=== PATIENT | female | born 1935 | race Caucasian/White ===

== ENCOUNTER 2017-11-15 11:08 | Inpatient (IN) | payer OTHER, BC ==
[~2017-11-15] VITALS: Ht 162.6 cm; Wt 56.9 kg
[~2017-11-15 11:08] MED LIST: AMIODARONE HCL200 MG PO; AMLODIPINE BESY10 MG PO; ASPIR 8181 M1 PO; ATORVASTATIN CA40 MG PO; BYSTOLIC5 MG PO; CALCIUM ACETAT667 MG PO; CARDURA2 M1 PO; DIALYVITE TABL1 EACH PO; ELIQUIS2.5 MG PO; IMDUR60 MG PO; INTUNIV2 MG PO; ISOSORBIDE MONO60 MG PO; LEVOTHYROXINE150 MCG PO; LIPITOR40 MG PO; LO-DOSE ASPIRIN81 M1 PO; LOPRESSOR25 MG PO; LOPRESSOR50 MG PO; LOSARTAN POTASS25 MG PO; LOSARTAN POTASS50 MG PO; METHYLDOPA500 MG PO; METOPROLOL TART25 MG PO; METRONIDAZOLE500 MG PO; NIFEDIPINE ER30 MG PO; NIFEDIPINE ER60 MG PO; NORVASC10 MG PO; PANTOPRAZOLE SO40 MG PO; SERTRALINE HCL50 MG PO; SYNTHROID125 MCG PO; SYNTHROID150 MCG PO; VENTOLIN HFA18 GM IH; VITAMIN D2000 UNIT PO; ZOLOFT50 MG PO
[2017-11-15 11:54] LABS: BASOPHIL (%) 0.9 % (0-1); EOSINOPHIL COUNT 0.1 K/uL (0-0.3); HEMATOCRIT 31.8 % (36.0-46.0); HEMOGLOBIN 10.5 G/DL (11.9-15.5); IMMATURE GRANULOCYTE (%) 0.7 % (0.0-0.7); LYMPHOCYTE (%) 13.8 % (15-42); LYMPHOCYTE COUNT 0.6 K/uL (1.0-2.8); MCV 102.9 FL (83-99); MONOCYTE (%) 11.1 % (3-12); MONOCYTE COUNT 0.5 K/uL (0-0.8); NEUTROPHIL (%) 71.5 % (45-76); NEUTROPHIL COUNT 3.2 K/uL (1.8-6.4); PLATELET COUNT 142 K/uL (156-360); RBC DIS.WIDTH-CV 15.3 % (11.8-14.6); RBC DIS.WIDTH-SD 58.6 % (39-53); RED BLOOD COUNT 3.09 M/uL (3.80-5.20); WHITE BLOOD COUNT 4.4 K/uL (4.1-10.2)
[2017-11-15 12:01] LABS: INTER. NORMALIZED RATIO 1.9
[2017-11-15 12:03] LABS: PTT 44.9 SEC (25-37)
[2017-11-15 12:17] LABS: TROP-I INTERPRETATION NEGATIVE
[2017-11-15 12:32] LABS: CHLORIDE 99 MEQ/L (99-109); CREATININE 9.1 MG/DL (0.6-1.3); GFR ESTIMATE (CALCULATED) 4 mL/min/; GLUCOSE 90 mg/dL (70-99); POTASSIUM 3.2 MEQ/L (3.7-5.4); SODIUM 136 MEQ/L (136-147); UREA NITROGEN (BUN) 36 mg/dL (9-23)
[2017-11-15] MEDS ORDERED: TESSALON PERLE100 MG PO (14:14)
[2017-11-15] MEDS ORDERED: RESTORIL30 MG PO (14:15)
[2017-11-15] MEDS ORDERED: AMIODARONE HCL200 MG PO (14:18)
[2017-11-15] MEDS ORDERED: TOPROL XL25 MG PO (14:18)
[2017-11-15] MEDS ORDERED: PROCARDIA XL60 MG PO (14:19)
[2017-11-15 16:11] LABS: TROP-I INTERPRETATION INDETERMINATE; TROPONIN-I 0.31 ng/mL (0.0-0.30)
[2017-11-15 19:50] VITALS: BP 131/59
[2017-11-16] VITALS (7 sets, daily range): BP systolic 103–138; BP diastolic 45–62
[2017-11-16 06:49] LABS: BASOPHIL (%) 0.9 % (0-1); EOSINOPHIL (%) 3.2 % (0-5); EOSINOPHIL COUNT 0.2 K/uL (0-0.3); HEMATOCRIT 29.9 % (36.0-46.0); HEMOGLOBIN 9.6 G/DL (11.9-15.5); IMMATURE GRANULOCYTE (%) 0.6 % (0.0-0.7); LYMPHOCYTE (%) 19.7 % (15-42); LYMPHOCYTE COUNT 0.9 K/uL (1.0-2.8); MCH 34.2 PG (29.0-34.0); MCHC 32.1 G/DL (30.0-36.0); MCV 106.4 FL (83-99); MONOCYTE (%) 10.4 % (3-12); MONOCYTE COUNT 0.5 K/uL (0-0.8); NEUTROPHIL (%) 65.2 % (45-76); PLATELET COUNT 112 K/uL (156-360); RBC DIS.WIDTH-CV 15.7 % (11.8-14.6); RBC DIS.WIDTH-SD 62.1 % (39-53); RED BLOOD COUNT 2.81 M/uL (3.80-5.20); WHITE BLOOD COUNT 4.6 K/uL (4.1-10.2)
[2017-11-16 07:15] LABS: ALBUMIN 2.8 G/DL (3.2-4.8); ALKALINE PHOSPHATASE 93 IU/L (3-129); ALT (GPT) 8 IU/L (3-49); AST (GOT) 19 IU/L (2-34); CHLORIDE 102 MEQ/L (99-109); CREATININE 4.8 MG/DL (0.6-1.3); GFR ESTIMATE (CALCULATED) 9 mL/min/; GLUCOSE 85 mg/dL (70-99); HDL CHOLESTEROL 42 MG/DL (Desirable>=50); LDL CHOLESTEROL 40 mg/dL (Desirable<100); NON-HDL CHOLESTEROL 56 mg/dL (Desirable<160); POTASSIUM 3.7 MEQ/L (3.7-5.4); SODIUM 139 MEQ/L (136-147); TOTAL BILIRUBIN 0.3 MG/DL (0.0-1.0); TOTAL CHOLESTEROL 98 mg/dL (Desirable<200); TOTAL PROTEIN 4.9 G/DL (6.4-8.3); TRIGLYCERIDES 82 MG/DL (Normal: <150); UREA NITROGEN (BUN) 15 mg/dL (9-23)
[2017-11-17 03:59] VITALS: BP 123/56
[2017-11-17 07:18] VITALS: BP 129/56
[2017-11-17 09:41] LABS: BASOPHIL (%) 0.9 % (0-1); EOSINOPHIL (%) 1.7 % (0-5); EOSINOPHIL COUNT 0.1 K/uL (0-0.3); HEMATOCRIT 27.5 % (36.0-46.0); HEMOGLOBIN 8.7 G/DL (11.9-15.5); IMMATURE GRANULOCYTE (%) 1.1 % (0.0-0.7); LYMPHOCYTE (%) 16.7 % (15-42); LYMPHOCYTE COUNT 0.8 K/uL (1.0-2.8); MCH 33.1 PG (29.0-34.0); MCHC 31.6 G/DL (30.0-36.0); MCV 104.6 FL (83-99); MONOCYTE (%) 10.2 % (3-12); MONOCYTE COUNT 0.5 K/uL (0-0.8); NEUTROPHIL (%) 69.4 % (45-76); NEUTROPHIL COUNT 3.2 K/uL (1.8-6.4); PLATELET COUNT 122 K/uL (156-360); RBC DIS.WIDTH-CV 15.7 % (11.8-14.6); RBC DIS.WIDTH-SD 60.6 % (39-53); RED BLOOD COUNT 2.63 M/uL (3.80-5.20); WHITE BLOOD COUNT 4.6 K/uL (4.1-10.2)
[2017-11-17 10:07] LABS: ALBUMIN 2.8 G/DL (3.2-4.8); CHLORIDE 102 MEQ/L (99-109); GFR ESTIMATE (CALCULATED) 7 mL/min/; GLUCOSE 105 mg/dL (70-99); PHOSPHORUS 3.5 mg/dL (2.5-4.9); POTASSIUM 3.5 MEQ/L (3.7-5.4); SODIUM 136 MEQ/L (136-147)
[2017-11-17 10:08] LABS: CREATININE 6.4 MG/DL (0.6-1.3); UREA NITROGEN (BUN) 24 mg/dL (9-23)
[2017-11-17 15:28] VITALS: BP 106/46
[2017-11-17 19:54] VITALS: BP 118/68
[2017-11-17 23:45] VITALS: BP 102/50
[2017-11-18] VITALS (8 sets, daily range): BP systolic 100–122; BP diastolic 34–56
[2017-11-18 14:04] LABS: C DIFF TOXIN NEGATIVE (NEGATIVE)
[2017-11-18 17:22] LABS: CHLORIDE 98 MEQ/L (99-109); CREATININE 4.5 MG/DL (0.6-1.3); GFR ESTIMATE (CALCULATED) 10 mL/min/; GLUCOSE 160 mg/dL (70-99); POTASSIUM 3.8 MEQ/L (3.7-5.4); SODIUM 134 MEQ/L (136-147); UREA NITROGEN (BUN) 20 mg/dL (9-23)
[2017-11-19 08:01] LABS: HEMOGLOBIN 8.9 G/DL (11.9-15.5); MCHC 31.8 G/DL (30.0-36.0); MCV 103.7 FL (83-99); NRBC (%) 0.5 /100 WBC (0-0); PLATELET COUNT 153 K/uL (156-360); RBC DIS.WIDTH-CV 15.8 % (11.8-14.6); RBC DIS.WIDTH-SD 60.6 % (39-53); WHITE BLOOD COUNT 6.6 K/uL (4.1-10.2)
[2017-11-19 08:31] LABS: CHLORIDE 101 MEQ/L (99-109); POTASSIUM 3.7 MEQ/L (3.7-5.4); SODIUM 136 MEQ/L (136-147)
[2017-11-19 08:39] LABS: GFR ESTIMATE (CALCULATED) 8 mL/min/; GLUCOSE 127 mg/dL (70-99); PHOSPHORUS 3.2 mg/dL (2.5-4.9); UREA NITROGEN (BUN) 28 mg/dL (9-23)
[2017-11-19 08:41] LABS: CREATININE 5.5 MG/DL (0.6-1.3)
[2017-11-19 08:50] VITALS: BP 102/38
[2017-11-19 11:40] VITALS: BP 121/53
[2017-11-19 15:21] VITALS: BP 141/61
[2017-11-19 20:58] VITALS: BP 99/47
[2017-11-19 23:21] VITALS: BP 104/67
[2017-11-20 07:58] VITALS: BP 138/67
[2017-11-20 16:00] VITALS: BP 106/42
[2017-11-21] VITALS: BP 136/57
[2017-11-21 08:00] VITALS: BP 128/58
[2017-11-21] MEDS ORDERED: GUAIFENESI100 MG/5 M PO (11:03)
[2017-11-21] MEDS ORDERED: COMBIVENT RESPIM4 GM IH (11:03)
[2017-11-21] MEDS ORDERED: PREDNISONE20 MG PO (11:03)
[2017-11-21] MEDS ORDERED: LEVAQUIN500 MG PO (11:11)
== END 2017-11-21 12:40 | disposition home health service (06) | DRG 189 ==
LOC: EME 11:08 → 5SOUTH 12:50 → EDOF 12:50 → ENRESERV 12:55 → 5SOUTH 19:23
PROVIDERS: Emergency Medicine; Internal Medicine; Internal Medicine Nephrology
PROC: 5A1D70Z Performance of Urinary Filtration, Intermittent, Less than 6 Hours Per Day (ICD-10-PCS; principal; 2017-11-15)
DX: J96.01 Acute respiratory failure with hypoxia (principal); J18.9 Pneumonia, unspecified organism; I13.2 Hypertensive heart and chronic kidney disease with heart failure and with stage 5 chronic kidney disease, or end stage renal disease; I50.32 Chronic diastolic (congestive) heart failure; N18.6 End stage renal disease; I48.91 Unspecified atrial fibrillation; E87.6 Hypokalemia; I25.10 Atherosclerotic heart disease of native coronary artery without angina pectoris; E78.5 Hyperlipidemia, unspecified; D63.1 Anemia in chronic kidney disease; E03.9 Hypothyroidism, unspecified; D69.6 Thrombocytopenia, unspecified; J45.909 Unspecified asthma, uncomplicated; K21.9 Gastro-esophageal reflux disease without esophagitis; I25.2 Old myocardial infarction; Z79.01 Long term (current) use of anticoagulants; Z79.82 Long term (current) use of aspirin; Z99.2 Dependence on renal dialysis; Z86.73 Personal history of transient ischemic attack (TIA), and cerebral infarction without residual deficits
CPT/HCPCS: 71045; 80048; 80053; 80061; 80069; 80202; 81003; 83605; 83880; 84484; 85025; 85027; 85610; 85730; 87040; 87070; 87205; 87449; 87493; 87502; 87641; 93005; 94640; 94640 76; 94760; 94799; 97530 GP; 99202; 99281; 99285; J0456; J0692; J0696; J0881; J3370; J7512

== ENCOUNTER 2018-05-12 07:22 | Day surgery (SDC) | payer OTHER, BC ==
[~2018-05-12] VITALS: Ht 167.6 cm; Wt 54.4 kg
[~2018-05-12 07:22] MED LIST changes: +COMBIVENT RESPIM4 GM IH; +GUAIFENESI100 MG/5 M PO; +LEVAQUIN500 MG PO; +PREDNISONE20 MG PO; +PROCARDIA XL60 MG PO; +RESTORIL30 MG PO; +TESSALON PERLE100 MG PO; +TOPROL XL25 MG PO
[2018-05-12] MEDS ORDERED: TOPROL XL50 MG PO (07:41)
[2018-05-12] MEDS ORDERED: CARDIZEM CD,CA180 MG PO (07:42)
== END 2018-05-12 09:45 | disposition home or self-care (01) ==
LOC: CATH 07:22
PROC: B51W1ZZ Fluoroscopy of Dialysis Shunt/Fistula using Low Osmolar Contrast (ICD-10-PCS; principal; 2018-05-12)
PROC: 05HY33Z Insertion of Infusion Device into Upper Vein, Percutaneous Approach (ICD-10-PCS; principal; 2018-05-12)
PROC: 057Y3ZZ Dilation of Upper Vein, Percutaneous Approach (ICD-10-PCS; principal; 2018-05-12)
PROC: 3E03317 Introduction of Other Thrombolytic into Peripheral Vein, Percutaneous Approach (ICD-10-PCS; principal; 2018-05-12)
DX: T82.858A Stenosis of other vascular prosthetic devices, implants and grafts, initial encounter (principal); Y83.2 Surgical operation with anastomosis, bypass or graft as the cause of abnormal reaction of the patient, or of later complication, without mention of misadventure at the time of the procedure; I12.0 Hypertensive chronic kidney disease with stage 5 chronic kidney disease or end stage renal disease; N18.6 End stage renal disease; Z99.2 Dependence on renal dialysis; I48.91 Unspecified atrial fibrillation; D64.9 Anemia, unspecified; I25.2 Old myocardial infarction; E78.00 Pure hypercholesterolemia, unspecified; E07.9 Disorder of thyroid, unspecified; Z79.82 Long term (current) use of aspirin; Z79.01 Long term (current) use of anticoagulants
CPT/HCPCS: 87641; C1725; C1769; C1894; J1644; J2250; J3010